=== PATIENT | male | born 1990 ===

== ENCOUNTER 2020-04-07 20:45 | Emergency (ER) | payer OTHER ==
[~2020-04-07] VITALS: Ht 177.8 cm; Wt 77.1 kg
[2020-04-07 21:05] VITALS: BP 133/85; Ht 177.8 cm; Wt 77.1 kg
== END 2020-04-07 21:40 | disposition home or self-care (01) ==
LOC: ED 20:45
DX: M54.5 Low back pain (principal); V49.9XXA Car occupant (driver) (passenger) injured in unspecified traffic accident, initial encounter; Y93.I9 Activity, other involving external motion; Y92.413 State road as the place of occurrence of the external cause; Y99.8 Other external cause status